=== PATIENT | male | born 1955 | race Caucasian/White ===

== ENCOUNTER 2021-05-18 14:40 | Emergency (ER) | payer OTHER, MEDICARE ==
[~2021-05-18] VITALS: Ht 188 cm; Wt 83.5 kg
[2021-05-18 14:45] VITALS: BP 155/74
[2021-05-18] MEDS ORDERED: DEXAMETHASONE 10 MG/ML VIAL IVP ONE (16:45)
--- NOTE | 2021-05-18 16:45 | NUR ---
TO BED 7 ACCOMP BY . 66 Y/O MALE BIB C/O DIFFICULTY BREATHING AND INCREASED SALIVATION/SPUTUM XFEW MONTHS S/P DIAGNOSED WITH STAGE 4 MOUTH AND THROAT CANCER. PT IS SEEING DR. LANGFORD [place] AND IS AWARE OF THESE SYMPTOMS. SPO2 97% ON RA. DENIES N/V, DENIES FEVER/CHILLS. PT IS NON-VERBAL WROTE A NOTE "THE SWELLING THAT STOPPED BREATHING WAS FROM CT HEAD PREP. THE MAIN TUMOR ENLARGED BY ABOUT 10X. THE RADIATION/CHEMO IS DUE TO START NOW. THE TUMOR EXPANDED BEYOND MY TEETH AND SHOWS HOW MUCH THE GROWTH ADVANCED". LARGE TUMOR NOTED EXTRUDING BEYOND THE LIPS. MD NOTIFIED, EVALUATED PATIENT AND PLAN IS TO TRANSFER PATIENT TO HIGHER LEVEL OF CARE FOR IMPROVISED AIRWAY. PMH: GTUBE, STAGE 4 MOUTH AND THROAT CANCER, AND PICC LINE TO LEFT UPPER ARM
[2021-05-18 17:00] LABS: BASOPHILS # (AUTO) 0.1 K/uL (0.00-0.22); BASOPHILS % (AUTO) 0.5 % (0.0-2.0); EOSINOPHILS # (AUTO) 0.4 K/uL (0-0.4); EOSINOPHILS % (AUTO) 2.5 % (0.0-4.0); HEMATOCRIT 30.5 % (36-52); HEMOGLOBIN 9.9 g/dL (12.0-18.0); LYMPHOCYTES # (AUTO) 1.1 K/uL (2.0-11.5); LYMPHOCYTES % (AUTO) 8.1 % (20.5-51.1); MEAN CORPUSCULAR HEMOGLOBIN 28 pg (27-31); MEAN CORPUSCULAR HGB CONC 32 g/dL (33-37); MEAN CORPUSCULAR VOLUME 86.4 fL (80-94); MONOCYTES # (AUTO) 1.3 K/uL (0.8-1.0); MONOCYTES % (AUTO) 9.5 % (1.7-9.3); NEUTROPHILS # (AUTO) 11.3 K/uL (1.8-7.7); NEUTROPHILS % (AUTO) 79.4 % (42.2-75.2); PLATELET COUNT (AUTO) 337 K/uL (140-450); RED BLOOD CELL COUNT(AUTO) 3.53 MIL/uL (4.20-6.10); RED CELL DISTRIBUTION WIDTH 14.7 % (11.6-13.7); WHITE BLOOD COUNT (AUTO) 14.2 K/uL (4.8-10.8)
--- NOTE | 2021-05-18 17:14 | NUR ---
PT RESTING BEDSIDE WITH EYES OPEN AND BEDSIDE. BED IN LOWEST POSITION WITH SIDERAIL X1 UP. VITAL SIGNS STABLE. WILL CONTINUE TO MONITOR. CURRENT O2 SAT 97% ON RA
[2021-05-18 17:15] LABS: PROTHROMBIN TIME 10.5 secs (10.8-13.4)
[2021-05-18 17:16] LABS: ALBUMIN 2.8 g/dL (3.4-5.0); CARBON DIOXIDE 31.3 mmol/L (21-32); CREATININE 0.8 mg/dL (0.6-1.3); POTASSIUM 4.3 mmol/L (3.5-5.1); TOTAL BILIRUBIN 0.3 mg/dL (0.0-1.0)
--- NOTE | 2021-05-18 17:28 | NUR ---
Note maria elena in ED - 05/18/21 at 1753 by [email or web address] CONTACTED CASSY BEAR, ROSSY BENOIT [facility] FOR TRANSFER. CY BEAR PV, [facility] DENIED TRANSFER. CASSY DID NOT ANSWER.
--- NOTE | 2021-05-18 17:33 | NUR ---
Emery arredondo in [facility] - 05/18/21 at 1753 by [email or web address] RALF LANGFORD.
--- NOTE | 2021-05-18 17:34 | NUR ---
Emery arredondo in [facility] - 05/18/21 at [email or web address] PATHAK CALLED BACK AND ON THE PHONE WITH DR. WARREN.
--- NOTE | 2021-05-18 17:36 | NUR ---
PER ER JOLANTA COBIAN TO USE PICC LINE TO ADMINISTER MEDICATIONS.
[2021-05-18 17:39] LABS: PHOSPHORUS 2.6 mg/dL (2.5-4.9); URIC ACID 3.8 mg/dL (2.6-7.2)
--- NOTE | 2021-05-18 18:35 | NUR ---
CONSENT FOR TRANSFER TO [facility] RECIEVED BEDSIDE
--- NOTE | 2021-05-18 18:51 | NUR ---
REPORT GIVEN TO [facility] BEDSIDE FOR TRANSFER OF PATIENT. CALLED AND GAVE REPORT TO HUI COLORADO AT [facility].
--- NOTE | 2021-05-18 18:53 | NUR ---
Patient to be transferred to [facility] ED. Is being transferred due to HIGHER LEVEL OF CARE. Receiving facility has accepting physician and available space. ER physician has signed transfer form. Patient or responsible alliance party has agreed to transfer and signed form. Patient belongings inventoried and will be sent with patient. Copy of nursing notes, lab reports, EKG, Physicians Orders and X-rays to be sent with patient. Report called to HUI [place] at receiving facility. [facility] ambulance service has been called for transfer. ETA is [id number].
[2021-05-18 18:54] VITALS: BP 148/76
== END 2021-05-18 18:53 | disposition short-term general hospital (02) ==
LOC: MED 14:40
DX: R06.00 Dyspnea, unspecified (principal); C32.9 Malignant neoplasm of larynx, unspecified; Z85.819 Personal history of malignant neoplasm of unspecified site of lip, oral cavity, and pharynx
CPT/HCPCS: 36415; 80053; 84100; 84550; 85025; 85610; 85730; 96374; 99291; J1100